=== PATIENT | female | born 1960 | race Caucasian/White ===

== ENCOUNTER → 2017-05-14 06:42 | Outpatient (CLI) | payer MEDICAID, SELFPAY ==
--- NOTE | 2017-05-14 14:15 | PFTCOMP_ITS ---
COMPLETE PULMONARY FUNCTION TEST INTERPRETATION Brief HPI: Patient is a 56 year old female, currently under the care of Shelia Parker, who presents to [facility] for complete pulmonary function tests secondary to diagnosis of COPD. Respiratory therapist reports good effort and reproducible results. Interpretation: Forced expiration spirometry shows a severe large airways obstructive ventilatory defect with an FEV1 of 37 % predicted. There is a significant bronchodilator response in FVC by ATS criteria. Spirograms are of good quality and plateau slowly, indicating slowly emptying areas of the lungs. The respiratory flow volume loop shows decreased expiratory flow rates at all lung volumes consistent with airway obstruction. Lung volumes by body plethysmography show an elevated total lung capacity at 5.15 L, 125 % predicted. FRC and RV are elevated out of proportion. Lung volume measurements are consistent with hyperinflation and air-trapping. Diffusion capacity by carbon monoxide is normal at 47 % predicted. The airway resistance is elevated. Compared to previous pulmonary function tests from 05/21/2016, there has been a significant change in FVC and FEV1, decreased 18% and 12% respectively. Impression: Partially reversible severe large airways obstructive ventilatory defect resulting in air trapping with hyperinflation. There has been worsening over the last year.
== END ==
PROVIDERS: Family Provider Family Medicine; PCP Family Medicine; Visit Provider Nurse Practitioner Acute Care
DX: J44.9 Chronic obstructive pulmonary disease, unspecified (principal); R06.02 Shortness of breath; F17.200 Nicotine dependence, unspecified, uncomplicated
CPT/HCPCS: 94060; 94726; 94729

== ENCOUNTER → 2018-07-12 16:24 | Outpatient (CLI) | payer MEDICAID, SELFPAY ==
[2018-07-06 09:25] VITALS: BMI 19.5
== END ==
PROVIDERS: Family Provider Family Medicine; PCP Family Medicine; Referring Provider Internal Medicine Critical Care Medicine; Visit Provider Internal Medicine Critical Care Medicine
DX: J44.9 Chronic obstructive pulmonary disease, unspecified (principal)
CPT/HCPCS: 94762

== ENCOUNTER → 2018-08-02 08:17 | Outpatient (CLI) | payer MEDICAID, SELFPAY ==
[2018-07-06 09:25] VITALS: BMI 19.5
[2018-08-02 08:30] VITALS: PULSE 72; PULSE 75; PULSE 83; PULSE 84; PULSE 85; PULSE 86; O2SAT 85; O2SAT 93; O2SAT 95; O2SAT 97; O2SAT 98; O2SAT 99
--- NOTE | 2018-08-02 09:14 | CPS ---
Patient came in on Room Air. At the first minute the patient's pulse ox dropped to 85%. Patient stated she has qualified for O2 but had refused in the past. Patient was continued test on 2L. Patient's pulse ox stayed up for reminder of test on 2L. [facility] was called to set up home O2 and Shelia Parker came down to see the patient. Marcie [facility]
--- NOTE | 2018-08-02 11:22 | PCM.PSN.6M ---
PSN 6 Minute Walk Test - 6 Minute Walk Test 6 Minute Walk Test: 6 Minute Walk Test PSN:6-Minute Walk Test Start: 08/02/18 09:05 Freq: Status: Active Protocol: RESP.6MINW Document 08/02/18 08:30 ELENI (Rec: 08/02/18 09:13 ELENI [id number]) 6 Minute Walk Test Date Performed 08/02/18 Time Performed 08:30 Height 5 ft Weight: 45.359 kg Weight in Pounds 100.[address]: Messi Naqvi Assistive device used: None Pre-test Oxygen Delivery Method Room Air Pulse Ox (%) 99 Pulse Rate (60-100 beats/min) 75 Dyspnea Nadine Scale (0-10) 2 Exertion Nadine Scale (6-20) 6 1st minute Oxygen Delivery Method Room Air Pulse Ox (%) 85 Pulse Rate (60-100 beats/min) 83 Dyspnea Nadine Scale (0-10) 4 Exertion Nadine Scale (6-20) 13 2nd minute Oxygen Flow Rate (L/min) (L/min) 2 Oxygen Delivery Method Nasal Cannula Pulse Ox (%) 95 Pulse Rate (60-100 beats/min) 85 3rd minute Oxygen Flow Rate (L/min) (L/min) 2 Oxygen Delivery Method Nasal Cannula Pulse Ox (%) 98 Pulse Rate (60-100 beats/min) 84 4th minute Oxygen Flow Rate (L/min) (L/min) 2 Oxygen Delivery Method Nasal Cannula Pulse Ox (%) 97 Pulse Rate (60-100 beats/min) 85 5th minute Oxygen Flow Rate (L/min) (L/min) 2 Oxygen Delivery Method Nasal Cannula Pulse Ox (%) 95 Pulse Rate (60-100 beats/min) 85 6th minute Oxygen Flow Rate (L/min) (L/min) 2 Oxygen Delivery Method Nasal Cannula Pulse Ox (%) 93 Pulse Rate (60-100 beats/min) 86 Post-test Oxygen Flow Rate (L/min) (L/min) 2 Oxygen Delivery Method Nasal Cannula Pulse Ox (%) 99 Pulse Rate (60-100 beats/min) 72 Dyspnea Nadine Scale (0-10) 4 Exertion Nadine Scale (6-20) 13 Full Laps Walked 21 Partial Lap, Number of Tiles Walked 0 Total Distance Walked (ft) 1239 - Interpretation Interpretation: Patient noted to be 99% on room air at rest. However, patient desaturated to 85% in the first minute of ambulation with no assistive devices. Patient was placed on 2 L nasal cannula and oxygen fredo noted to be 93% without significant tachycardia. In total, patient was able to ambulate 1239 feet. These findings are consistent with a respiratory limitation exercise tolerance. - Recommendations Recommendations: No supplemental oxygen is indicated at rest, but patient should be using 2 L nasal cannula with any exertion.
== END ==
PROVIDERS: Family Provider Family Medicine; PCP Family Medicine; Referring Provider Nurse Practitioner Acute Care; Visit Provider Nurse Practitioner Acute Care
DX: J44.9 Chronic obstructive pulmonary disease, unspecified (principal)
CPT/HCPCS: 94618

== ENCOUNTER → 2020-08-01 06:37 | Outpatient (CLI) | payer MEDICARE, SELFPAY ==
[2020-07-30 12:03] VITALS: BMI 19.2
--- NOTE | 2020-08-01 06:41 | CT_ITS ---
STUDY: CT ABDOMEN WITH CONTRAST REASON FOR EXAM: Female, 60 years old. 3 week history of left upper quadrant pain. RADIATION DOSAGE (If Supplied By Facility): CTDIvol = ( 7.02 ) mGy, DLP = ( 129.61 ) mGycm TECHNIQUE: Transaxial images were obtained post I.V. administration of IV 100mL Isovue-300, and oral contrast. Sagittal and coronal images were reconstructed. Individualized dose optimization techniques were used for this CT. COMPARISON: None. FINDINGS: There is a 5.5 cm x 5.5 cm inhomogeneous soft tissue mass in the posterior medial segment of the right lower lobe. The visualized portions of the heart are within normal limits. Hepatomegaly. Multiple hypodense nodules seen throughout the liver. These have a cystic appearance although diffuse metastatic deposits cannot be excluded with the mass seen in the right lower lobe. Normal gallbladder and extrahepatic biliary system. Normal spleen. Normal pancreas. Normal bilateral adrenal glands. Normal right kidney. Normal left kidney. Normal visualized stomach. Normal small intestine. Moderate amount of fecal material is seen in the colon. The appendix is visualized and appears normal. There is diffuse atherosclerotic calcification of the abdominal aorta, without a demonstrated aneurysm. Normal inferior vena cava. Normal retroperitoneum. Normal abdominal wall. Sclerosis and deformity of the inferior endplate of the L4 vertebrae. Focal sclerotic lesion is seen in the superior endplate of the T12 vertebrae. There is a 2.1 cm x 2.4 cm lytic lesion in the left sacral wing. Metastatic bony deposits should be ruled out. CT/Abdomen WITH IV Contrast IMPRESSION: 5.5 cm x 5.5 cm inhomogeneous mass in the posterior segment of the right lower lobe of the lung. Hepatomegaly with multiple diffuse bilateral hypodense nodules having a cystic appearance although metastatic deposits should be ruled out. Findings suggestive of bony metastasis. Electronically Signed: Allen Silva MD at 9:15 EDT , Service support ,
[2020-08-01 06:55] LABS: CREATININE FINGERSTICK 1.2 mg/dL (0.55-1.02)
== END ==
PROVIDERS: PCP Family Medicine; Referring Provider Family Medicine; Visit Provider Family Medicine
DX: C79.51 Secondary malignant neoplasm of bone (principal); C80.1 Malignant (primary) neoplasm, unspecified; R91.8 Other nonspecific abnormal finding of lung field; R16.0 Hepatomegaly, not elsewhere classified; R10.32 Left lower quadrant pain
CPT/HCPCS: 74160; Q9967

== ENCOUNTER → 2020-08-02 11:53 | Outpatient (CLI) | payer MEDICARE, SELFPAY ==
[2020-07-30 12:03] VITALS: BMI 19.2
--- NOTE | 2020-08-02 12:02 | CT_ITS ---
STUDY: CT CHEST WITH CONTRAST REASON FOR EXAM: Female, 60 years old. LUNG MASS RADIATION DOSAGE (If Supplied By Facility): CTDIvol = ( 5.365 ) mGy, DLP = ( 156.33 ) mGycm TECHNIQUE: Transaxial imaging was performed following intravenous administration of IV 100mL Isovue-300. Multiplanar coronal and sagittal images were reformatted. Individualized dose optimization techniques were used for this CT. COMPARISON: Comparison is made with prior CT scan of the abdomen dated 07/30/2020. FINDINGS: Hyperinflation. Diffuse emphysematous changes with bullous formation more prominent in the upper lobes. There is a 6.2 cm by 5.3 cm inhomogeneous solid mass in the posterior medial segment of the right lower lobe. There is a 1.1 cm spiculated nodule in the posterior aspect of the right lung apex most likely reflecting scarring. Normal heart and pericardium. Normal mediastinum. There is evidence of enlargement of the right hilar lymph nodes. Normal enhanced pulmonary arteries. Normal aorta arch and descending thoracic aorta. There are multi-level degenerative changes of the thoracic spine. Multiple liver metastasis as seen on prior CT scan of the abdomen. CT/Chest WITH Contrast IMPRESSION: Stable mass lesion in the posterior medial segment of the right lower lobe with evidence of multiple liver metastasis. Electronically Signed: Allen Silva MD at 12:53 EDT , Service support ,
== END ==
PROVIDERS: PCP Family Medicine; Referring Provider Family Medicine; Visit Provider Family Medicine
DX: R91.8 Other nonspecific abnormal finding of lung field (principal)
CPT/HCPCS: 71260; Q9967